=== PATIENT | female | born 1995 | race Caucasian/White ===

== ENCOUNTER 2019-07-27 11:29 | Inpatient (IN) | payer OTHER ==
[~2019-07-27] VITALS: Ht 180.3 cm; Wt 72.1 kg
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
[2019-07-27 13:00] VITALS: BP 130/61
[2019-07-27 13:12] LABS: BASO % 0.4 % (0.0-1.0); EOS # 0.2 10*3/uL (0.0-0.4); HEMATOCRIT 39.3 % (37.0-47.0); HEMOGLOBIN 12.6 g/dl (12.0-16.0); LYMPH % 41.2 % (27.0-41.0); MEAN CELL VOLUME 88.1 fl (81.0-99.0); MEAN CORPUSCULAR HGB 28.3 pg (27.0-31.0); MEAN CORPUSCULAR HGB CONC 32.1 g/dl (33.0-37.0); MONO # 0.4 10*3/uL (0.1-1.0); MONO % 8.6 % (3.0-9.0); NEUT # 2.1 10*3/uL (2.3-7.9); NEUT % 44.6 % (47.0-73.0); PLATELET COUNT AUTOMATED 229 10*3/uL (130-400); RED BLOOD COUNT 4.46 10*6/uL (4.10-5.10); RED CELL DISTRI WIDTH 14.6 % (0-14.5); WHITE BLOOD COUNT 4.8 10*3/uL (4.8-10.8)
[2019-07-27 13:22] LABS: INTERNATIONAL NORM RATIO 0.9 (2.0-3.5)
[2019-07-27 13:26] LABS: ALBUMIN 3.3 gm/dl (3.1-4.5); ALKALINE PHOSPHATASE 43 U/L (45-117); BUN 10 mg/dl (7-24); CHLORIDE 106 mmol/L (98-107); CREATININE 0.68 mg/dL (0.55-1.02); ETHYL ALCOHOL < 3.0 mg/dl (<3); POTASSIUM 3.9 mmol/L (3.5-5.1); SGOT/AST 11 IU/L (3-35); SGPT/ALT 15 U/L (12-78); SODIUM 138 mmol/L (136-145); TOTAL PROTEIN 6.6 gm/dL (6.4-8.2)
--- NOTE | 2019-07-27 13:26 | NUR ---
PATIENT MEETS [facility]. CIWA (B) =24, CINA=18. PATIENT IS WANTING TO FOLLOW UP WITH A [facility] IN [facility] AND SHE ALSO ATTENDS AA/NA MEETINGS FOR HER AFTERCARE PLAN. MINERVA MARTINEZ B.A. CONCRETE SWIMMING POOL INSTALLER
[2019-07-27 13:30] LABS: BETA-HCG, QUANT < 1.0 mIU/mL (1-3)
[2019-07-27 13:45] LABS: COLOR YELLOW (YELLOW)
[2019-07-27 13:46] LABS: BILIRUBIN NEGATIVE (NEGATIVE); BLOOD NEGATIVE (NEGATIVE); CLARITY SL CLOUDY (CLEAR); GLUCOSE NEGATIVE (NEGATIVE); KETONE NEGATIVE (NEGATIVE); LEUKO ESTERASE NEGATIVE (NEGATIVE); NITRITE NEGATIVE (NEGATIVE); SPECIFIC GRAVITY 1.015 (1.005-1.030); UROBILINOGEN 0.2 E.U./dl (0.2-1.0)
[2019-07-27 13:50] LABS: URINE AMPHETAMINES < 1000 (1000ng/ml); URINE BARBITURATES < 200 (200ng/ml); URINE BENZODIAZEPINES > 200 (200ng/ml); URINE CANNABINOIDS (THC) < 50 (50ng/ml); URINE COCAINE < 300 (300ng/ml); URINE METHADONE < 300 (300ng/ml); URINE OPIATES < 300 (300ng/ml); URINE PHENCYCLIDINE < 25 (25ng/ml)
[2019-07-27 13:52] LABS: BACTERIA 4+
--- NOTE | 2019-07-27 13:58 | NUR ---
MEDICATED WITH PRN ROBAXIN,ZOFRAN,AND VISTARIL PER ORDERS.
[2019-07-27 16:00] VITALS: BP 107/51
[2019-07-27 20:00] VITALS: BP 111/50
--- NOTE | 2019-07-27 21:46 | NUR ---
PATIENT REQUESTING MEDICATION FOR MUSCLE CRAMPS AND SPASMS AND SLEEP. REQUIP, ROBAXIN, AND TRADADONE ADMINISTERED PRESCRIBED.WILL MONITOR FOR EFFECTIVENESS.
--- NOTE | 2019-07-27 22:46 | NUR ---
PATIENT RESTING WITH EYES CLOSED. RESPIRATIONS EASY AND UNLABORED. CALL LIGHT IN REACH. WILL MONITOR.
[2019-07-28] VITALS: BP 84/46
[2019-07-28 08:00] VITALS: BP 84/38
--- NOTE | 2019-07-28 09:11 | NUR ---
LOW BP. DR ACUNA NOTIFIED AND OK TO GIVE LIBRIUM.
[2019-07-28 12:00] VITALS: BP 84/33
--- NOTE | 2019-07-28 13:20 | NUR ---
PATIENT STILL WANTS TO FOLLOW UP WITH [facility] FOR MEDICATION-ASSISTED TREATMENT FOR HER AFTERCARE PLAN. MINERVA MARTINEZ B.A. BODS DEVELOPER
[2019-07-28 16:00] VITALS: BP 97/41
[2019-07-28 20:00] VITALS: BP 93/48
--- NOTE | 2019-07-28 20:56 | NUR ---
24 HR chart check completed.
--- NOTE | 2019-07-28 21:53 | NUR ---
PATIENT MEDICATED WITH REQUIP, ROBAXIN, VISTARIL, AND TRAZADONE FOR C/O MUSCLE ACHES AND RESTLESSNESS, ANXIETY AND SLEEP. WILL MONITOR FOR EFFECTIVENESS.
--- NOTE | 2019-07-28 22:53 | NUR ---
PATIENT RESTING WITH EYES CLOSED. RESPIRATIONS EASY AND UNLABORED. CALL LIGHT IN REACH. WILL MONITOR.
[2019-07-29] VITALS: BP 106/48
[2019-07-29 08:00] VITALS: BP 98/50
--- NOTE | 2019-07-29 13:20 | NUR ---
PRN LIBRIUM PO GIVEN AT THIS TIME DUE TO PT REQUESTING IT FOR HER WITHDRAWLS. WILL CONTINUE TO MONITOR, CALL LIGHT WITHIN REACH
--- NOTE | 2019-07-29 13:23 | NUR ---
PT IS GIVEN PRN REQUIP PO DUE TO COMPLAINTS OF RESTLESS LEGS. WILL CONTINUE TO MONITOR
--- NOTE | 2019-07-29 14:00 | NUR ---
DR ACUNA NOTIFIED OF POSITIVE URINE CULTURE AND HE STATED HE'S AWARE.
[2019-07-29 16:00] VITALS: BP 108/64
--- NOTE | 2019-07-29 16:50 | NUR ---
[place] STAFF IN TO SEE PATIENT. PATIENT AGREES AND UNDERSTANDS HER AFTERCARE PLAN. MINERVA MARTINEZ B.A. POLYSOMNOGRAPHY TECHNOLOGIST
[2019-07-29 20:00] VITALS: BP 102/50
--- NOTE | 2019-07-29 20:20 | NUR ---
PATIENT IS AAOX3 RESTING IN BED WATCHING TV AND EATING A SNACK. ASSESSMENT IS COMPLETE WITH NO S/S OF DISTRESS NOTED AT THIS TIME. PATIENT C/O BADYACHES, HOT/COLD FLASHES, AND ANXIETY. BED IS LOW, LOCKED, AND CALL LIGHT IS WITHIN REACH. WILL CONTINUE TO MONITOR, SEE SHIFT ASSESSMENT.
[2019-07-30] VITALS: BP 90/52
[2019-07-30 08:00] VITALS: BP 85/57
--- NOTE | 2019-07-30 11:27 | NUR ---
Discharge instructions reviewed with patient/family. Patient receptive and verbalizes understanding. Follow-up care arranged. Written instructions given to patient/family. LELIA TALLEY
== END 2019-07-30 11:29 | disposition home or self-care (01) | DRG 773 ==
LOC: 5E 11:29
PROVIDERS: Internal Medicine; ADMIT Family Medicine
DX: F11.23 Opioid dependence with withdrawal (principal); F13.10 Sedative, hypnotic or anxiolytic abuse, uncomplicated; F17.210 Nicotine dependence, cigarettes, uncomplicated; E73.9 Lactose intolerance, unspecified; E44.0 Moderate protein-calorie malnutrition; Z68.22 Body mass index [BMI] 22.0-22.9, adult; Z71.6 Tobacco abuse counseling; R73.9 Hyperglycemia, unspecified